=== PATIENT | female | born 1975 | race Caucasian/White ===

== ENCOUNTER → 2016-08-31 | Outpatient (CLI) | payer BC | LOC: MC.RAD 13:13 | DX: Z12.31 Encounter for screening mammogram for malignant neoplasm of breast (principal) ==

== ENCOUNTER → 2017-09-19 | Outpatient (CLI) | payer BC | LOC: MC.RAD 07:45 | DX: Z12.31 Encounter for screening mammogram for malignant neoplasm of breast (principal) ==

== ENCOUNTER → 2018-10-02 | Outpatient (CLI) | payer BC | LOC: MC.RAD 09:12 | DX: Z12.31 Encounter for screening mammogram for malignant neoplasm of breast (principal) ==

== ENCOUNTER → 2019-10-04 | Outpatient (CLI) | payer BC | LOC: MC.RAD 09:10 | DX: Z12.31 Encounter for screening mammogram for malignant neoplasm of breast (principal) ==

== ENCOUNTER → 2021-03-04 | Outpatient (CLI) | payer BC | LOC: MC.RAD 02-24 08:45 | DX: Z12.31 Encounter for screening mammogram for malignant neoplasm of breast (principal) ==

== ENCOUNTER 2021-06-18 07:53 | Day surgery (SDC) | payer BC ==
[~2021-06-18] VITALS: Ht 172.7 cm; Wt 66.9 kg
[2021-06-18] MEDS ORDERED: SPRINTEC 35 MCG1 TAB PO (08:36)
[2021-06-18] MEDS ORDERED: PRINIVIL10 MG PO (08:36)
[2021-06-18] MEDS ORDERED: PROAIR HFA0.09 MG/AC IH (08:37)
[2021-06-18 08:43] VITALS: BP 128/98; PULSE 66; TEMP 98.3
[2021-06-18 09:35] VITALS: BP 105/79; PULSE 76; TEMP 97.1
[2021-06-18 09:50] VITALS: BP 110/68; PULSE 73
[2021-06-18 10:05] VITALS: BP 113/71; PULSE 57
--- NOTE | 2021-06-18 12:06 | NUR ---
0935 PT RETURNED TO [facility] VIA CART, TRANSFERED TO CHAIR WITH RN ASSIST. ALERT AND ORIENTED. MONITORS ATTACHED, INTERVALS AND ALARMS SET. VSS. PT DENIES PAIN OR NAUSEA. FOOD AND DRINK PROVIDED. CALL LIGHT IN REACH. 0950 VSS. PT DENIES DISCOMFORT. TOLERATING FOOD AND DRINK WELL. 1005 VSS. PT DENIES DISCOMFORT. REVIEWED DISCHARGE INSTRUCTIONS AND EDUCATION MATERIAL, ANSWERED ALL QUESTIONS. IV REMOVED WITHOUT COMPLICATIONS. PT ALLOWED TO DRESS. 1055 TRANSFERRED PT VIA WHEELCHAIR TO PERSONAL VEHICLE TO BE DRIVEN HOME FRIEND.
== END 2021-06-18 10:55 | disposition home or self-care (01) ==
LOC: SDCO 07:53
DX: Z12.11 Encounter for screening for malignant neoplasm of colon (principal); Z86.16 Personal history of COVID-19
CPT/HCPCS: J2704; J7030

== ENCOUNTER → 2023-05-31 | Outpatient (CLI) | payer BC ==
[~2023-05-31] MED LIST: PRINIVIL10 MG PO; PROAIR HFA0.09 MG/AC IH; SPRINTEC 35 MCG1 TAB PO
== END ==
LOC: MC.RAD 06:53
DX: Z12.31 Encounter for screening mammogram for malignant neoplasm of breast (principal)